=== PATIENT | male | born 1985 | race Hispanic/Latino ===

== ENCOUNTER 2018-11-22 01:15 | Emergency (ER) | payer SELFPAY ==
[2018-11-22 01:46] LABS: Bilirubin Small (Negative); Blood, Urine Negative (Negative); Clarity CLEAR (Clear); Glucose, Urine (Dipstick) Negative (Negative); Leukocyte Negative (Negative); Nitrite Negative (Negative); Protein, Urine (Dipstick) Trace mg/dL (Neg-Trace); Urobilinogen 0.2 mg/dL (0.2-1.0)
[2018-11-22 02:27] LABS: #Eosinphils 0.1 thou/uL (0.0-0.7); #Monocytes 0.9 thou/uL (0.11-0.59); %Basophils 0.1 % (0.0-1.0); %Eosinophils 0.5 % (0.0-10.0); %Lymphocytes 6.3 % (21.0-51.0); %Neutrophils 87.1 % (42.0-75.0); Hemoglobin 16.1 g/dL (14.0-18.0); Mean Corpuscular HGB CONC 34.4 g/dL (32.0-36.0); Mean Corpuscular Hemoglobin 32.3 pg (27.0-31.0); Mean Corpuscular Volume 93.9 fL (78.0-98.0); Mean Platelet Volume 8.3 fL (7.4-10.4); Platelet Count 158 thou/uL (130-400); RBC Distribution Width 11.9 % (11.5-14.5); Red Blood Cell (RBC) Count 4.98 mill/uL (4.70-6.10); White Blood Cell (WBC) Count 14.9 thou/uL (4.8-10.8)
[2018-11-22 02:52] LABS: ALT (SGPT) 28 U/L (8-55); AST (SGOT) 22 U/L (5-34); Albumin 4.7 g/dL (3.5-5.0); Alkaline Phosphatase 86 U/L (40-150); Anion Gap 14 mmol/L (10-20); BUN (Urea Nitrogen) 13 mg/dL (8.9-20.6); Bilirubin, Total 1.2 mg/dL (0.2-1.2); Calc. Creatinine Clearance 0 mL/min (70-130); Calcium 9.7 mg/dL (7.8-10.44); Carbon Dioxide 29 mmol/L (22-29); Chloride 98 mmol/L (98-107); Estimated GFR-MDRD 89; Globulin 3.2 g/dL (2.4-3.5); Glucose 101 mg/dL (70-105); Lipase 13 U/L (8-78); Potassium 3.3 mmol/L (3.5-5.1); Protein, Total 7.9 g/dL (6.0-8.3); Sodium 138 mmol/L (136-145)
[2018-11-22] MEDS ORDERED: Acetaminophen 500 MG TAB ONE (04:34)
[2018-11-22] MEDS ORDERED: Pantoprazole 40 MG VIAL ONE (04:39)
[2018-11-22] MEDS ORDERED: Ondansetron PF 4 MG/2 ML Vial ONE (04:39)
--- NOTE | 2018-11-22 09:48 | CT ---
PRELIMINARY REPORT/[facility]/EMERGENCY AFTER HOURS PROCEDURE: EXAM: CT Abdomen and Pelvis With Contrast EXAM DATE/TIME: 11/22/2018 3:15 AM CLINICAL HISTORY: 33 years old, male; Abdominal pain; Generalized; Patient HX: PT reports abd pain and n/v/d x 1 week TECHNIQUE: Imaging protocol: Axial computed tomography images of the abdomen and pelvis with intravenous contras t. Coronal and sagittal reformatted images were created and reviewed. COMPARISON: No relevant prior studies available. FINDINGS: Lungs: No consolidations in the lung bases. Liver: No liver masses. Gallbladder and bile ducts: Normal appearance of the gallbladder. No ductal dilation. Pancreas: No pancreatic mass or ductal dilation. Spleen: No splenic masses. Adrenals: No adrenal nodules. Kidneys and ureters: No enhancing mass or hydronephrosis. Stomach and bowel: Wall thickening, hyperemia and vascular congestion involving the distal and termin al ileum. No bowel obstruction. Appendix: Normal appendix. Intraperitoneal space: No free air or free fluid. Vasculature: Normal vasculature. Lymph nodes: Small mesenteric lymph nodes in the right lower quadrant consistent with reactive lymph nodes. Bladder: The bladder is decompressed. Reproductive: Normal. Bones/joints: No suspicious bone lesions. Soft tissues: No acute findings. IMPRESSION: Focal ileitis involving the distal and terminal ileum. This could be infectious or inflammatory bowel disease. Thank you for allowing us to participate in the care of your patient. Dictated and Authenticated by: Leila Jarrett MD 11/22/2018 4:17 AM Central Time ([place] & [place]) FINAL REPORT ABDOMEN CT WITH CONTRAST PELVIC CT WITH CONTRAST: Date: 11/22/18 HISTORY: Abdominal pain. Nausea, vomiting, and diarrhea, x1 week. FINDINGS: Appropriate enhancement of the solid organs. No evidence of obstructive uropathy. No mesenteric mass, lymphadenopathy, or free air. Trace amount of fluid in the right paracolic gutter . There is mucosal thickening with adjacent mesenteric fat stranding involving the distal ileum and ter driss ileum. Appendix has a normal caliber. Visualized colon is unremarkable. IMPRESSION: Ileitis involving the distal ileum and terminal ileum. Correlate for infectious or inflammatory proce ss. This report is in agreement with the preliminary report by Daniel. POS: OFF
[2018-11-22] MEDS ORDERED: ISOVUE-370 76%-LOCM 1 ML ONE (11:22)
== END 2018-11-22 06:15 | disposition home or self-care (01) ==
LOC: ERS 01:15
DX: R11.2 Nausea with vomiting, unspecified (principal); R19.7 Diarrhea, unspecified; R10.13 Epigastric pain; F17.210 Nicotine dependence, cigarettes, uncomplicated; Z79.899 Other long term (current) drug therapy
CPT/HCPCS: 36415; 74177; 80053; 81003; 83690; 85025; 96361; 96372; 96374; 96375; C9113; J0500; J2405; Q9966